=== PATIENT | male | born 1980 | race Caucasian/White ===

== ENCOUNTER 2024-10-06 02:43 | Day surgery (SDC) | payer OTHER ==
[~2024-10-06] VITALS: Ht 177.8 cm; Wt 93.0 kg
--- NOTE | 2024-10-06 07:00 | NUR ---
Arrival & Pre-treatment Patient arrived to the ANR suite, identification and demographics confirmed. Patient to room 8, AAO, ambulatory, vitals obtained, ID/allergy/fall bands placed, changed into hospital gown, JUNIOR hose, and non-slip socks. Procedure and timeline explained for treatment and discharge. All questions answered and the patient presents no concerns at this time.
[2024-10-06] MEDS ORDERED: FAMOTIDINE 20 MG/TAB PO PRN (07:30)
[2024-10-06] MEDS ORDERED: cloNIDine HCL 0.1 MG/TAB PO PRN (07:30)
[2024-10-06] MEDS ORDERED: CYANOCOBALAMIN 500 MCG/TAB ( B12) PO PRN (07:30)
[2024-10-06] MEDS ORDERED: LACTATED RINGER'S 1,000 ML IV PRN ×3 (07:30→19:00)
[2024-10-06] MEDS ORDERED: PANTOPRAZOLE SODIUM Sesquihydr 40 MG/TAB PO PRN (07:30)
[2024-10-06] MEDS ORDERED: diazePAM 5 MG/TAB PO PRN ×2 (07:30→08:30)
[2024-10-06] MEDS ORDERED: ALBUTEROL SULFATE 2.5 MG VIAL IN PRN (07:30)
[2024-10-06] MEDS ORDERED: SCOPOLAMINE 1.5 MG DIS TD PRN (07:30)
--- NOTE | 2024-10-06 07:45 | NUR ---
Dr. Spencer telephoned with patient intake information including usage, dose, last dose/time taken and initial vital signs. Patient history and allergies reviewed with MD. Orders received for 10mg PO Valium and 0.2 mg PO Clonidine now. Will reassess per protocol in 1.5 hours and update MD with assessment and vitals. Patient medicated per MD orders. In addition to Clonidine and Valium, patient received 1000 mcg B12 PO, 20 mg Pepcid PO, and Scopolamine TD patch. Medication indication and education provided prior to administration.
[2024-10-06] MEDS ORDERED: ASCORBIC ACID 4,000 MG in SODIUM CHLORIDE 0.9% 1,000 ML IV SCH (08:00)
[2024-10-06 08:40] LABS: BASO% 0.4 % (0-3); EOS% 2.9 % (0-8); HEMATOCRIT 40.4 % (39.0-50.0); HEMOGLOBIN 13.3 g/dl (14.0-18.0); LYMPH% 31.2 % (15-41); MEAN CORPUSCULAR HGB 30.3 pG CALC (26.0-32.0); MEAN CORPUSCULAR HGB CONC 32.9 g/dL CAL (32.0-36.0); MONO% 10.2 % (2-13); NEUT# 2.87 thou/uL (1.82-7.42); NEUT% 55.3 % (42-76); RED BLOOD COUNT 4.39 mill/uL (4.70-6.10); RED CELL DISTRI WIDTH 13.4 % (11.5-15.5)
[2024-10-06] MEDS ORDERED: PROPOFOL 10 MG/ML 100ML VIAL IV PRN (08:50)
[2024-10-06] MEDS ORDERED: MIDAZOLAM HCL 2 MG/2 ML VIAL IV PRN (08:50)
[2024-10-06] MEDS ORDERED: MAGNESIUM SULFATE HEPTAHYDRATE 100 ML IV PRN (08:50)
[2024-10-06] MEDS ORDERED: NALTREXONE HCL 50 MG/TAB VT PRN (08:50)
[2024-10-06] MEDS ORDERED: DiphenhydrAMINE HCL 50 MG/ML SDV IV PRN (08:50)
[2024-10-06] MEDS ORDERED: THIAMINE HCL 100 MG/ML 2ML VIAL IV PRN (08:50)
[2024-10-06] MEDS ORDERED: cloNIDine HYDROCHLORIDE 100 MCG/ML 10 ML INJ IV PRN (08:50)
[2024-10-06] MEDS ORDERED: ONDANSETRON HCl 4 MG/2 ML SDV IV PRN ×3 (08:50→19:00)
[2024-10-06] MEDS ORDERED: STERILE WATER FOR IRRIGATION 1,000 ML BTL IR PRN (08:50)
[2024-10-06] MEDS ORDERED: diazePAM 5 MG/TAB VT PRN (08:50)
[2024-10-06] MEDS ORDERED: LIDOCAINE HCL 1% (10MG/ML) 100 MG/10 ML MDV IV PRN (08:50)
[2024-10-06] MEDS ORDERED: cloNIDine HCL 0.1 MG/TAB VT PRN (08:50)
[2024-10-06] MEDS ORDERED: LIDOCAINE HCL 1% (10MG/ML) 100 MG/10 ML MDV VT PRN ×2 (08:50)
[2024-10-06] MEDS ORDERED: SUCCINYLCHOLINE CHLORIDE 20 MG/ML 10ML VIAL IV PRN (08:50)
[2024-10-06] MEDS ORDERED: PROPOFOL 100 ML IV PRN (08:50)
[2024-10-06] MEDS ORDERED: OCTREOTIDE ACETATE 100 MCG/VIAL SDV SC PRN (08:50)
[2024-10-06] MEDS ORDERED: DEXAMETHASONE SODIUM PHOSPHATE PF 10 MG/ML SDV IV PRN ×2 (08:50→19:00)
[2024-10-06] MEDS ORDERED: ROCURONIUM BROMIDE 10 MG/ML 5ML VIAL IV PRN (08:50)
[2024-10-06 08:56] VITALS: BP 132/97
[2024-10-06 09:00] VITALS: BP 108/66
[2024-10-06 09:03] LABS: ALBUMIN 4.7 g/dL (3.2-5.0); BILIRUBIN, TOTAL 0.4 mg/dL (0.2-1.3); CREATININE 0.8 mg/dL (0.7-1.3); POTASSIUM 4.3 mmol/l (3.5-5.1); TOTAL PROTEIN 7.3 g/dL (6.3-8.2)
[2024-10-06] MEDS ORDERED: HYDROXYZ HCL50 MG PO (09:18)
[2024-10-06] MEDS ORDERED: MICARDIS20 MG PO (09:19)
[2024-10-06 09:32] VITALS: BP 124/86
--- NOTE | 2024-10-06 09:35 | NUR ---
Patient resting comfortably in bed. Easily aroused, maintains focus, and drifts back to sleep. No signs of active withdrawal or distress noted at this time. Continuous SPO2, rhythm, and respiratory monitoring initiated. IVF @ 250 mL/HR, room air, VSS.
[2024-10-06] MEDS ORDERED: POTASSIUM CHLORIDE 10 MEQ/50 ML BAG IV PRN (09:50)
[2024-10-06 10:02] VITALS: BP 108/66
[2024-10-06 10:32] VITALS: BP 96/63
--- NOTE | 2024-10-06 10:35 | NUR ---
Induction Note Patient to [facility] procedure room. Time out performed at 1035. Patient placed on monitors, Marline hugger, bilateral wrist restraints applied for ET tube protection. Versed 5mg given IV push at 1100. Tourniquet applied to RIGHT arm Lidocaine 100mg given at 1101 IV push followed by Rocoronium 10mg at 1102 IV push and held for 90 seconds. Propofol bolus of 120mg given at 1104 IV push. Succinylcholine 80mg given IV push at 1105. Smooth intubation with 7.5 ETT. Positive CO2. Positive Auscultation for air exchange. Patient placed on ventilator for spontaneous ventilation. Placed on Propofol IV drip at 1106. OG inserted. Positive air on auscultation. Positive gastric content. Stomach washed at this time.
--- NOTE | 2024-10-06 11:15 | NUR ---
OG close note Stomach washed at this time. Naltrexone 50 mg with Clonidine 0.1 mg via OG tube. OG will be clamped for 45 minutes.
[2024-10-06] MEDS ORDERED: NALTREXONE50 MG PO (11:46)
[2024-10-06] MEDS ORDERED: CLONIDINE0.1 MG PO (11:47)
[2024-10-06] MEDS ORDERED: KLONOPIN2 MG PO (11:47)
--- NOTE | 2024-10-06 12:00 | NUR ---
OG open note OG open at this time. Gastric content draining into drainage bag. OG to drain for 45 minutes. Propofol will be titrated down based on patient.
--- NOTE | 2024-10-06 12:45 | NUR ---
OG close note Stomach washed at this time. Naltrexone 50 mg with Clonidine 0.3 mg via OG tube. OG will be clamped for 45 minutes.
--- NOTE | 2024-10-06 12:59 | NUR ---
Patient had a large liquid bowel movement. SN noted severe edema to patients penis and testicular area. Dr. Spencer called to the bedside to inform of edema. Patient and did not mention anything about it during initial intake . Dr. Spencer said to monitor.No medications ordered . Patient is voiding without difficulty.
--- NOTE | 2024-10-06 14:15 | NUR ---
OG close note Stomach washed at this time. Naltrexone 50 mg with Clonidine 0.3 mg via OG tube. OG will be clamped for 45 minutes.
--- NOTE | 2024-10-06 15:45 | NUR ---
OG close note Stomach washed at this time. Naltrexone 25 mg with Clonidine 0.2 mg via OG tube. OG will be clamped for 45 minutes.
--- NOTE | 2024-10-06 17:15 | NUR ---
OG close note Stomach washed at this time. Naltrexone 12.5 mg with Clonidine 0.2 mg via OG tube. OG will be clamped for 30 minutes.
--- NOTE | 2024-10-06 17:45 | NUR ---
OG open note OG open at this time. Gastric content draining into drainage bag. OG to drain . Propofol will be titrated down based on patient.
--- NOTE | 2024-10-06 18:00 | NUR ---
Extubation note Closing medications given Benadryl 50mg IV push, Decadron 10mg IV push,Magnesium 4 grams IV, Zofran 8mg IV push, Octreotide 100mcg SC. Stomach washed out prior to extubation. Suctioned gastric content. OG removed. Patient extubated. Propofol Discontinued. Wrist restraints removed. Marline hugger Removed. See ANR Moderate sedate recovery record for further notes and assessment.
--- NOTE | 2024-10-06 18:30 | NUR ---
TRANSER NOTE Patient transferred to medical-surgical unit.Report given to nurse at bedside. Head to toe assessment, treatment, medications, I/O, IV access reviewed with RN. All questions answered. IVF to continue at 100 ml/hr, NC @ 4L, no adventitious breath sounds. Safety precautions in place, bed locked and in lowest position, call light in reach. Handoff of care at the time this note. Verbal order recieved from Dr. Spencer to have cpap prn if needed. Order written and RT contacted. patient brought to the [facility] on a Non-rebreather.
[2024-10-06 18:43] VITALS: BP 131/70
--- NOTE | 2024-10-06 18:53 | NUR ---
patient arrived to [facility] from anr patient resting in bed; patient on a none rebreather at this time,awaiting capap for RT; vitals stable; no s.s of distress at this time; iv site clean and intact running with LR @100; bedside report with naeomi; eye covering is applied
[2024-10-06] MEDS ORDERED: LORazepam 2 MG/ML IV PRN ×2 (19:00)
[2024-10-06] MEDS ORDERED: HALOPERIDOL LACTATE 5 MG/ML SDV IV PRN ×2 (19:00→21:55)
[2024-10-06] MEDS ORDERED: ACETAMINOPHEN 500 MG TAB PO PRN (19:00)
[2024-10-06] MEDS ORDERED: PROMETHAZINE HCL 25 MG in SODIUM CHLORIDE 0.9% 50 ML IV PRN (19:00)
[2024-10-06] MEDS ORDERED: ACETAMINOPHEN 1,000 MG/100 ML VIAL IV PRN (19:00)
[2024-10-06] MEDS ORDERED: KETOROLAC TROMETHAMINE 30 MG/ML SDV IV PRN (19:00)
[2024-10-06] MEDS ORDERED: PROMETHAZINE HCL 12.5 MG in SODIUM CHLORIDE 0.9% 50 ML IV PRN (19:00)
--- NOTE | 2024-10-06 19:02 | NUR ---
spouse called with update.
[2024-10-06] MEDS ORDERED: PATIENT' OWN MED CONTROLLED 1 EA DOSE IV PRN (21:00)
--- NOTE | 2024-10-06 22:00 | NUR ---
PT CPNTINUES TO PRESENT RESTLESS AND AGITATED, DISORIENTED AND UNABLE TO FOLLOW COMMANDS. PT KEEPS TOSSING AND TUNRING IN BED, PULLING AT LINES AND NASAL CANNULA AND TRYING TO CLIMB OVER BED RAILS. PT ALSO BECOMING COMBATIVE AMD HARDER TO REDIRECT. INFORMED PHYSICIAN CLEAT FEEDER, TORB AND FAXED TO PHARMACY. ADMINISTERED MEDICATION PER EMAR, HAS NOT BEEN EFFECTIVE YET AT THIS TIME. PT WAS UNHOOKED FROM FLUIDS DUE TO INABLITLY TO STAY STILL AND PULLING AT LINE. BED ALARM ON AND SAFETY PRECAUTIONS IN PLACE. NETWORK ANNOUNCER SITTING UP DOORWAY.
[2024-10-06] MEDS ORDERED: clonazePAM 1 MG/TAB PO PRN (23:00)
[2024-10-06] MEDS ORDERED: cloNIDine HCL 0.1 MG/TAB PO SCH (23:00)
--- NOTE | 2024-10-06 23:50 | NUR ---
WAS UNABLE TO RETRIEVE BP READING ON PT DUE TO INABILTY TO KEEP STILL. PT STILL PRESENTS WITH SAME BEHAVIOR. ADMINSITERED MEDICATION PER EMAR SCHEDULE. CONTINUE TO REDIRECT AND REORIENT PT. BED ALARM ON AND SAFETY PRECAUTIONS IN PLACE. CODING SPECIALIST SITTING AT DOORWAY.
--- NOTE | 2024-10-07 01:00 | NUR ---
PT HAS FINALLY STARTED RESTING IN BED, IVF RUNNING PER EMAR NOW. PT LAYING IN BED ON RT SIDE. HAS BEEN ABLE TO STAND AND USE URINAL WITH X2 ASSIST. NASAL CANNULA IN PLACE ON 8L O2 HIGH FLOW. NO S/S OF DISTRESS. BED ALARM ON AND SAFETY PRECAUTIONS IN PLACE.
[2024-10-07 04:00] VITALS: BP 114/74
[2024-10-07] MEDS ORDERED: cloNIDine HCL 0.1 MG/TAB PO PRN (04:00)
[2024-10-07] MEDS ORDERED: clonazePAM 1 MG/TAB PO PRN ×2 (04:00→08:00)
[2024-10-07] MEDS ORDERED: NALTREXONE HCL 50 MG/TAB PO SCH (04:00)
--- NOTE | 2024-10-07 04:22 | NUR ---
ADMINISTERED SCHEDULED MEDICATIONS PER EMAR, PT TOLERATED WELL. DENIES ANY N/V/P. PT DOES PRESENT SLIGHTLY MORE ALERT BUT STILL DROWSY. ABLE TO FOLLOW COMMANDS AND REDIRECT. VSS. NO S/S OF DISTRESS. IVF RUNNING PER EMAR. BED ALARM ON AND SAFETY PRECAUTIONS IN PLACE. VP ACCOUNT DIRECTOR SITTING AT DOORWAY.
[2024-10-07 04:23] LABS: BASO% 0.1 % (0-3); HEMATOCRIT 35.6 % (39.0-50.0); HEMOGLOBIN 12.1 g/dl (14.0-18.0); IMMATURE GRANULOCYTES 0.1 % (0.0-5.0); LYMPH% 5.3 % (15-41); MEAN CELL VOLUME 90.8 fL CALC (80.0-100.0); MEAN CORPUSCULAR HGB 30.9 pG CALC (26.0-32.0); MONO% 4.2 % (2-13); NEUT# 12.32 thou/uL (1.82-7.42); NEUT% 90.3 % (42-76); RED BLOOD COUNT 3.92 mill/uL (4.70-6.10); RED CELL DISTRI WIDTH 13.2 % (11.5-15.5)
[2024-10-07 04:31] LABS: ALBUMIN 4.4 g/dL (3.2-5.0); CREATININE 0.8 mg/dL (0.7-1.3); MAGNESIUM 2.3 mg/dL (1.6-2.3); POTASSIUM 3.8 mmol/l (3.5-5.1); TOTAL PROTEIN 6.8 g/dL (6.3-8.2)
[2024-10-07 04:37] LABS: BILIRUBIN, TOTAL 0.9 mg/dL (0.2-1.3)
--- NOTE | 2024-10-07 05:08 | NUR ---
PT WOKE UP ATTEMPTING TO GET OUT OF BED. WHEN REDIRECTED TO LAY BACK DOWN AND ASKED PT WHAT THEY NEEDED THAY STATED "I NEED MY MEDS" INFORMED PT MEDICATION HAS ALREADY BEEN ADMINSITERED. PT STATED "NOT THE MEDS I TAKE" WHEN ASKED WHAT MEDS THEY ARE REFERRING TO THEY STATED "MY OXY, I NEED MY OXY" INFOMRED PT THEY WILL NOT BE RECEIVING ANY NARCOTICS DUE TO NATURE OF PROCEDURE THEY JUST HAD AND PT STATED "NO I NEED IT, I HAVENT HAD IT IN SO LONG IM WITHDRAWLING" PT IS NOT PRESENTING WITH ANY SIGNS OF WITHDRAWL AND WHEN ASKED WHAT SYMPTOMS THEY ARE FEELIING STATED "IM WITHDRAWLING, I KNOW I AM"
--- NOTE | 2024-10-07 06:40 | NUR ---
ROUNDED ON PT. MINISTER HELPER NURSE PERLA REPORTS SLEEPLESSNESS AND SOME AGGRESSION EARLY IN THE SHIFT. ORDERS RECEIVED FOR HALDOL FROM PHYSICIAN. NURSE REPORTS THAT MEDICATION DID WORK BUT NOT DELIVERY DRIVER. PT IS RESTING AT THIS TIME. AROUSABLE TO TOUCH AND THEN FALLS BACK ASLEEP.
[2024-10-07] MEDS ORDERED: ACETAMINOPHEN 325 MG/TAB PO SCH (08:00)
[2024-10-07] MEDS ORDERED: PANTOPRAZOLE SODIUM Sesquihydr 40 MG/TAB PO SCH (08:00)
[2024-10-07] MEDS ORDERED: cloNIDine HCL 0.1 MG/TAB PO SCH (08:00)
[2024-10-07 08:12] VITALS: BP 117/69
--- NOTE | 2024-10-07 08:24 | NUR ---
PATIENT RESTING IN BED; ROOM AIR; BREATHING UNLABORED; DENIED ANY PAIN; DENIED ANY N/D/V AT THIS TIME; PATIENT AMBULATED TO BATHROOM WITH ASSIST; NO S.S OF DISTRESS AT THIS TIME; IV SITE CLEAN AND INTACT RUNNING WITH LR @100; REMOVED IV IN RAC DUE TO THE POSTION OF THE IV BULGING OUT; PATIENT TOLERATED HIS MEDICATIONS AND BREAKFAST WITH NO ISSUES; CALL LIGHT WITHIN REACH ; BED IN LOWEST POSTION; SAFETY MEASURES IN PLACE; NO COMPLAINTS
--- NOTE | 2024-10-07 08:50 | NUR ---
PATIENT AMBULATED TO BATHROOM WITH ASSISTANCE;
[2024-10-07] MEDS ORDERED: ACETAMINOPHEN 500 MG TAB PO PRN (09:00)
[2024-10-07] MEDS ORDERED: Cholecalciferol 2,000 UNIT/TAB PO PRN (09:00)
[2024-10-07] MEDS ORDERED: MAGNESIUM OXIDE 400 MG/TAB PO PRN (09:00)
--- NOTE | 2024-10-07 09:53 | NUR ---
PATIENT BECOMING AGGITATED, GETTING IN AND OUT OF BED; MEDICATED PER EMAR; IV SITE CLEAR AND INTACT RUNNING WITH LR @100; SAFTEY MEASURES IN PLACE
--- NOTE | 2024-10-07 11:23 | NUR ---
POTASSIUM LABS UNDER RANGE, TALKED TO PROVIDER ABOUT REPLACEMENT; AWAITING NEW ORDERS
[2024-10-07] MEDS ORDERED: POTASSIUM CHLORIDE 20 MEQ/TAB PO SCH (12:30)
--- NOTE | 2024-10-07 12:55 | NUR ---
EUGENIENET RESTLESS IN BED; TOSSING AND TURNING IN BED; WHEN ATTEMPTED TO EAT LUNCH, PATIENT FACE WAS INSIDE OF HIS FOOD; DENIED ANY PAIN; DENIED ANY N/D/V JUST STATES THAT HE IS A LITTLE TIRED; PATIENT TOOK A SHOWER TO TRY TO HELP RELAX HIM; FROM TIME TO TIME HE WILL TALK WITH HIS EYES CLOSEED; WRITTER AT DOORWAY; CALL LIGHT WITHIN REACH; IV SITE CLEAN AND INTACT RUNNING WITH LR @100; SAFETY MEASURES IN PLACE
--- NOTE | 2024-10-07 15:42 | NUR ---
IV site discontinued, cath intact. No edema , no redness, voices no discomfort. Discharge instructions given. Patient verbalizes understanding of same. Discharged in stable condition via Ambulatory to Home with family. All belongings sent with pt.
== END 2024-10-07 15:39 | disposition home or self-care (01) | DRG 897 ==
LOC: ANR 02:43 → MS2 02:43 → ANR 07:00 → MS2 17:12 → ANR 10-07 07:00
PROVIDERS: ATTEND Anesthesiology
DX: F11.20 Opioid dependence, uncomplicated (principal)
CPT/HCPCS: J1100; J2060; J2354; J3475